=== PATIENT | female | born 1995 | race Caucasian/White ===

== ENCOUNTER 2021-07-23 12:22 | Observation (INO) ==
[2021-07-23 07:03] LABS: Amorphous Sediment,Urine Few per hpf (None-Few); Bacteria,Urine Moderate per hpf (None-Few); Bilirubin,Urine Negative (Negative); Blood,Urine Trace (Negative); Clarity,Urine Turbid (Clear); Color,Urine Light-Yellow (Yellow); Glucose,Urine (UA) Normal (Normal); Ketones,Urine Negative (Negative); Leukocyte Esterase,Urine Moderate (Negative); Mucus,Urine Few per lpf (None-Few); Nitrite,Urine Negative (Negative); PH,Urine 6.5 pH Units (5.0-8.0); Protein,Urine Trace mg/dL (Neg-Trace); RBC,Urine 15-30 per hpf (0-3); Specific Gravity,Urine 1.013 (1.010-1.025); Squamous Epithelial Cell,Urine Moderate per hpf (None-Few); Urobilinogen,Urine Normal (Normal)
[2021-07-23 08:34] LABS: Basophils % 0.2 %; Eosinophils # 0.1 K/mcL (0.0-0.6); Eosinophils % 0.4 %; Hematocrit 33.4 % (35.3-44.9); Hemoglobin 11.8 g/dL (11.5-15.4); Immature Granulocytes % 0.8 % (0-4); Lymphocytes # 1.5 K/mcL (0.6-4.6); Lymphocytes % 11.1 %; Mean Corpuscular HGB Conc 35.3 g/dL (31.6-35.5); Mean Corpuscular Hemoglobin 31.9 pg (28.0-33.3); Mean Corpuscular Volume 90.3 fL (83.0-100.0); Mean Platelet Volume 9.7 fL (9.4-12.4); Monocytes # 0.7 K/mcL (0.0-1.3); Monocytes % 5.3 %; Neutrophils # 11.1 K/mcL (1.6-8.9); Platelet Count 293 K/mcL (140-400); Red Cell Distribution Width 12.9 % (11.5-14.5); Segmented Neutrophils % 82.2 %; White Blood Count 13.5 K/mcL (4.3-11.1)
[2021-07-23 09:10] LABS: Potassium 3.7 mEq/L (3.5-5.1)
[~2021-07-23 12:22] MED LIST: *HR* OxyCODONE/APAP 10/325 TABLET PO ONE; *HR* OxyCODONE/APAP 5/325 TABLET PO ONE; Morphine Sulfate 2 MG/ML SYRINGE IVP ONE; Ondansetron 4 MG/2 ML VIAL IVP ONE; Ondansetron 4 MG/2 ML VIAL IVP PRN; Ringers Solution, Lactated 1,000 ML IVC SCH; Ringers Solution, Lactated 1,000 ML ONE; Ringers Solution, Lactated 500 ML IVC ONE; cefTRIAXone 2,000 MG in 0.9 % Sodium Chloride Mini Bag 100 ML IVPB ONE
[2021-07-23] MEDS ORDERED: Ondansetron 4 MG/2 ML VIAL IVP PRN (12:23)
[2021-07-23] MEDS: *HR* OxyCODONE/APAP 5/325 TABLET PO PRN ×2 (12:51→17:55)
[2021-07-23] MEDS: *HR* HYDROmorphone (PF) 1 MG/ML SYRINGE IVP PRN ×2 (15:47→19:06)
[2021-07-23] MEDS: Ringers Solution, Lactated 1,000 ML IVC SCH (20:55)
[2021-07-23] MEDS: *HR* HYDROmorphone 20 MG/20 ML PCA IVC PRN (20:56)
[2021-07-23 23:31] VITALS: O2SAT 97
[2021-07-24] MEDS: Ringers Solution, Lactated 1,000 ML IVC SCH (05:29)
[2021-07-24] MEDS: *HR* HYDROmorphone 20 MG/20 ML PCA IVC PRN (08:16)
[2021-07-24 08:23] VITALS: PULSE 88
[2021-07-24] MEDS ORDERED: cefTRIAXone 2,000 MG in 0.9 % Sodium Chloride Mini Bag 100 ML IVPB SCH (09:00)
[2021-07-24] MEDS ORDERED: Prenatal Vit/FA 1 EACH TABLET PO SCH (09:00)
[2021-07-24 12:47] VITALS: BP 108/60; TEMP 98.6
== END 2021-07-24 19:22 | disposition home or self-care (01) ==
LOC: 1NENULAB → 1NENUOBS 12:22
PROVIDERS: ADMIT Registered Nurse; ATTEND Registered Nurse

== ENCOUNTER 2021-08-10 09:32 | Inpatient (IN) ==
[~2021-08-10 09:32] MED LIST changes: +*HR* Nalbuphine 10 MG/ML AMPUL IV PRN; -*HR* OxyCODONE/APAP 10/325 TABLET PO ONE; -*HR* OxyCODONE/APAP 5/325 TABLET PO ONE; +Ampicillin 2 MG in 0.9 % Sodium Chloride Mini Bag 100 ML IVPB SCH; +Azithromycin 250 MG TABLET PO ONE; +Azithromycin 500 MG in 0.9 % Sodium Chloride 250 ML IVPB PRN; +Famotidine 20 MG/2 ML VIAL IVP PRN; +Metoclopramide 10 MG/2 ML VIAL IVP PRN; -Morphine Sulfate 2 MG/ML SYRINGE IVP ONE; +Naloxone 0.4 MG/ML INJ IVP PRN; -Ondansetron 4 MG/2 ML VIAL IVP ONE; -Ringers Solution, Lactated 1,000 ML IVC SCH; -Ringers Solution, Lactated 1,000 ML ONE; -Ringers Solution, Lactated 500 ML IVC ONE; -cefTRIAXone 2,000 MG in 0.9 % Sodium Chloride Mini Bag 100 ML IVPB ONE
[2021-08-10] MEDS ORDERED: Betamethasone Acet/SodPhos 30 MG/5 ML VIAL IM SCH (09:45)
[2021-08-10] MEDS: Ringers Solution, Lactated 1,000 ML IVC SCH ×2 (10:19→19:15)
[2021-08-10 10:33] LABS: Basophils % 0.5 %; Eosinophils % 0.5 %; Hematocrit 32.6 % (35.3-44.9); Hemoglobin 11.4 g/dL (11.5-15.4); Immature Granulocytes % 0.7 % (0-4); Lymphocytes # 0.9 K/mcL (0.6-4.6); Lymphocytes % 11.6 %; Mean Corpuscular Hemoglobin 30.8 pg (28.0-33.3); Mean Corpuscular Volume 88.1 fL (83.0-100.0); Monocytes # 0.7 K/mcL (0.0-1.3); Monocytes % 8.9 %; Neutrophils # 5.8 K/mcL (1.6-8.9); Platelet Count 244 K/mcL (140-400); Segmented Neutrophils % 77.8 %; White Blood Count 7.4 K/mcL (4.3-11.1)
[2021-08-10 10:35] LABS: Bilirubin,Urine Negative (Negative); Blood,Urine Negative (Negative); Clarity,Urine Clear (Clear); Color,Urine Light-Yellow (Yellow); Glucose,Urine (UA) Normal (Normal); Ketones,Urine Negative (Negative); Leukocyte Esterase,Urine Negative (Negative); Mucus,Urine Few per lpf (None-Few); Nitrite,Urine Negative (Negative); PH,Urine 6.5 pH Units (5.0-8.0); Protein,Urine Trace mg/dL (Neg-Trace); RBC,Urine 0-3 per hpf (0-3); Specific Gravity,Urine 1.015 (1.010-1.025); Squamous Epithelial Cell,Urine Few per hpf (None-Few); Urobilinogen,Urine Normal (Normal)
[2021-08-10 10:42] LABS: Amphetamine Screen,Urine Negative ng/mL (Cutoff=1000); Barbiturate Screen,Urine Negative ng/mL (Cutoff=200); Benzodiazepines Screen,Urine Negative ng/mL (Cutoff=200); Cannabinoid Screen,Urine Negative ng/mL (Cutoff = 50); Cocaine Screen,Urine Negative ng/mL (Cutoff= 300); Opiate Screen,Urine Negative ng/mL (Cutoff=300); Phencyclidine Screen,Urine Negative ng/mL (Cutoff=25)
[2021-08-10 10:50] LABS: Creatinine,Urine 63 mg/dL
[2021-08-10 10:52] LABS: Alanine Aminotransferase 20 Units/L (7-52); Aspartate Amino Transferase 23 Units/L (13-39); BUN/Creatinine Ratio 8 (6-26); Blood Urea Nitrogen 5 mg/dL (6-20); Lactate Dehydrogenase 125 Units/L (140-271); Uric Acid 4.5 mg/dL (2.3-7.6); eGFR For African Americans > 60 (> 60); eGFR For Non-African Americans > 60 (> 60)
[2021-08-10 11:14] LABS: Influenza A PCR Negative (Negative); Influenza B PCR Negative (Negative); Resp. Syncytial Virus PCR Negative (Negative)
[2021-08-10 11:16] LABS: SARS-CoV-2 by PCR (In House) Positive (Negative)
[2021-08-10] MEDS: Ampicillin 2,000 MG in 0.9 % Sodium Chloride Mini Bag 100 ML IVPB SCH ×2 (13:18→19:14)
[2021-08-10] MEDS ORDERED: Ondansetron 4 MG/2 ML VIAL ONE (17:24)
[2021-08-10] MEDS ORDERED: Ketorolac 30 MG/ML VIAL ONE (17:24)
[2021-08-10] MEDS ORDERED: *HR* Oxytocin 10 UNIT/ML VIAL ONE (17:24)
[2021-08-10] MEDS ORDERED: EPINEPHrine 1 MG/ML VIAL ONE (17:24)
[2021-08-10] MEDS ORDERED: *HR* Morphine Sulfate/PF 10 MG/10 ML AMPUL ONE (17:25)
[2021-08-10] MEDS ORDERED: *HR* FentaNYL (PF) 100 MCG/2 ML VIAL ONE (17:25)
[2021-08-10] MEDS ORDERED: Ringers Solution, Lactated 1,000 ML ONE (17:29)
[2021-08-10] MEDS ORDERED: *HR* Midazolam HCl 2 MG/2 ML VIAL ONE (17:33)
[2021-08-10] MEDS ORDERED: Lidocaine Jelly 11 ml Syringe TP ONE (22:33)
[2021-08-11] MEDS: Ampicillin 2,000 MG in 0.9 % Sodium Chloride Mini Bag 100 ML IVPB SCH (01:36)
[2021-08-11] MEDS: Ringers Solution, Lactated 1,000 ML IVC SCH (02:26)
[2021-08-11] MEDS ORDERED: EPHEDrine 50 MG/ML VIAL ONE (02:30)
[2021-08-11] MEDS ORDERED: CeFAZolin 2,000 MG/120 ML BAG IVPB ONE (03:00)
[2021-08-11] MEDS ORDERED: Promethazine 6.25 MG in Water for inj. (sterile) 20 ML IVPB PRN (04:22)
[2021-08-11] MEDS ORDERED: *HR* Labetalol 20 MG/4 ML SYRINGE IVP PRN (04:22)
[2021-08-11] MEDS ORDERED: *HR* HYDROmorphone PF 0.5 MG/0.5 ML SYRINGE IVP PRN (04:22)
[2021-08-11] MEDS ORDERED: Simethicone 80 MG TAB.CHEW PO PRN (05:34)
[2021-08-11] MEDS ORDERED: Ondansetron 4 MG/2 ML VIAL IVP PRN (05:34)
[2021-08-11] MEDS ORDERED: Metoclopramide 10 MG/2 ML VIAL IVP PRN (05:34)
[2021-08-11] MEDS: CeFAZolin 2,000 MG/120 ML BAG IVPB SCH ×2 (08:57→16:04)
[2021-08-11] MEDS: Prenatal Vit/FA 1 EACH TABLET PO SCH (08:58)
[2021-08-11] MEDS: metroNIDAZOLE 500 MG TABLET PO SCH ×3 (08:58→20:39)
[2021-08-11] MEDS ORDERED: NON-FORMULARY MEDICATION 1 EACH EACH (Prenatal Tablet 1 TAB) PO SCH (09:00)
[2021-08-11] MEDS: Acetaminophen 325 MG TABLET PO SCH ×2 (10:44→20:38)
[2021-08-11] MEDS: Ibuprofen 600 MG TABLET PO SCH ×2 (12:18→20:39)
[2021-08-11] MEDS: Oxytocin 20 units/ LR 1000 mL 20 UNIT/1,000 ML BAG IVC SCH (13:53)
[2021-08-11] MEDS: *HR* OxyCODONE Immed Rel 5 MG TABLET PO PRN ×2 (17:01→22:00)
[2021-08-12] MEDS: CeFAZolin 2,000 MG/120 ML BAG IVPB SCH (00:50)
[2021-08-12 01:15] LABS: Basophils % 0.3 %; Eosinophils % 0.2 %; Hematocrit 30.5 % (35.3-44.9); Immature Granulocytes % 0.4 % (0-4); Lymphocytes # 2.1 K/mcL (0.6-4.6); Lymphocytes % 19.5 %; Mean Corpuscular HGB Conc 32.8 g/dL (31.6-35.5); Mean Corpuscular Hemoglobin 30.1 pg (28.0-33.3); Mean Corpuscular Volume 91.9 fL (83.0-100.0); Mean Platelet Volume 9.8 fL (9.4-12.4); Monocytes # 0.8 K/mcL (0.0-1.3); Monocytes % 7.6 %; Neutrophils # 7.9 K/mcL (1.6-8.9); Platelet Count 253 K/mcL (140-400); Red Blood Count 3.32 M/mcL (3.82-4.97); Red Cell Distribution Width 12.4 % (11.5-14.5)
[2021-08-12] MEDS: *HR* OxyCODONE Immed Rel 5 MG TABLET PO PRN ×4 (05:04→20:31)
[2021-08-12] MEDS: Acetaminophen 325 MG TABLET PO SCH ×5 (05:04→23:38)
[2021-08-12] MEDS: Ibuprofen 600 MG TABLET PO SCH ×5 (05:04→23:38)
[2021-08-12] MEDS: Prenatal Vit/FA 1 EACH TABLET PO SCH (09:13)
[2021-08-12] MEDS: metroNIDAZOLE 500 MG TABLET PO SCH ×3 (09:13→20:31)
[2021-08-12] MEDS ORDERED: Amoxicillin 500 MG CAPSULE PO SCH (14:00)
[2021-08-12] MEDS: Oxytocin 20 units/ LR 1000 mL 20 UNIT/1,000 ML BAG IVC SCH (14:32)
[2021-08-12 18:55] VITALS: O2SAT 98
[2021-08-13] MEDS: *HR* OxyCODONE Immed Rel 5 MG TABLET PO PRN ×5 (00:51→22:15)
[2021-08-13] MEDS: Acetaminophen 325 MG TABLET PO SCH ×3 (06:00→17:49)
[2021-08-13] MEDS: Ibuprofen 600 MG TABLET PO SCH ×3 (06:01→17:50)
[2021-08-13] MEDS: Prenatal Vit/FA 1 EACH TABLET PO SCH (08:30)
[2021-08-13 19:31] VITALS: TEMP 97.8
[2021-08-14] MEDS: Acetaminophen 325 MG TABLET PO SCH ×2 (00:17→06:32)
[2021-08-14] MEDS: Ibuprofen 600 MG TABLET PO SCH ×2 (00:18→06:33)
[2021-08-14] MEDS: *HR* OxyCODONE Immed Rel 5 MG TABLET PO PRN ×2 (02:23→06:33)
[2021-08-14 07:12] VITALS: BP 137/91; PULSE 61
[2021-08-14] MEDS ORDERED: BuPROPion XL (24 HR) 150 MG TABLET PO SCH (09:00)
[2021-08-14] MEDS: Prenatal Vit/FA 1 EACH TABLET PO SCH (09:08)
== END 2021-08-14 10:41 | disposition home or self-care (01) | DRG 787 ==
LOC: 1NENULAB → 1NENUOBS 08-11 06:56
PROVIDERS: ADMIT Obstetrics & Gynecology; ATTEND Obstetrics & Gynecology